=== PATIENT | male | born 1980 | race Two or more races ===

== ENCOUNTER 2019-01-16 17:55 | Emergency (ER) | payer SELFPAY ==
[~2019-01-16] VITALS: Ht 177.8 cm; Wt 73.0 kg
[2019-01-16] MEDS ORDERED: SODIUM CHLORIDE 0.9% 1,000 ML IV ONE (18:15)
[2019-01-16] MEDS ORDERED: LEVETIRACETAM 1000MG/100ML 100 ML IV ONE (18:15)
[2019-01-16 18:56] LABS: BASOPHILS % 1.1 % (0.0-2.0); EOSINOPHILS % 7.9 % (0.0-5.0); HEMATOCRIT. 35.4 % (42.0-52.0); HEMOGLOBIN. 12.1 g/dL (14.0-18.0); LYMPHOCYTES % 17.6 % (20.0-50.0); MEAN CORPUSCULAR HEMOGLOBIN 30.9 pg (28.0-32.0); MEAN CORPUSCULAR VOLUME 90.5 fL (80.0-94.0); MEAN PLATELET VOLUME 6.7 fl (7.4-10.4); MONOCYTES % 6.5 % (2.0-8.0); NEUTROPHILS % 66.9 % (40.0-76.0); PLATELET 268 x1000/uL (130-400); RED BLOOD CELL COUNT 3.91 mill/uL (4.7-6.1); RED CELL DISTRIBUTION WIDTH 13.7 % (11.6-14.6)
[2019-01-16 18:58] LABS: CHLORIDE 106 mEq/L (98-107)
[2019-01-16 19:02] LABS: ETHANOL BLOOD < 10 mg/dL
[2019-01-17 00:30] VITALS: BP 131/80
== END 2019-01-17 00:40 | disposition home or self-care (01) ==
LOC: ER 17:55
DX: R56.9 Unspecified convulsions (principal)
CPT/HCPCS: 36415; 80053; 80320; 83735; 85025; 96365; 99283; J1953; J7030; G0480

== ENCOUNTER 2019-01-19 17:26 | Emergency (ER) | payer SELFPAY ==
[~2019-01-19] VITALS: Ht 185.4 cm; Wt 82.0 kg
[2019-01-19] MEDS ORDERED: SODIUM CHLORIDE 0.9% 1,000 ML IV ONE (17:36)
[2019-01-19] MEDS ORDERED: LEVETIRACETAM 1000MG/100ML 100 ML IV ONE (17:45)
[2019-01-19] MEDS ORDERED: LORAZEPAM 2MG/ML CPJ IV ONE (17:45)
[2019-01-19 18:43] LABS: BASOPHILS % 1.2 % (0.0-2.0); EOSINOPHILS % 4.7 % (0.0-5.0); HEMATOCRIT. 38.3 % (42.0-52.0); HEMOGLOBIN. 13.2 g/dL (14.0-18.0); MEAN CORPUSCULAR VOLUME 90.2 fL (80.0-94.0); MEAN PLATELET VOLUME 6.9 fl (7.4-10.4); MONOCYTES % 6.5 % (2.0-8.0); NEUTROPHILS % 71.6 % (40.0-76.0); PLATELET 310 x1000/uL (130-400); RED BLOOD CELL COUNT 4.25 mill/uL (4.7-6.1); RED CELL DISTRIBUTION WIDTH 13.8 % (11.6-14.6)
[2019-01-19 18:49] LABS: CHLORIDE 102 mEq/L (98-107)
[2019-01-19 18:52] LABS: ETHANOL BLOOD < 10 mg/dL
[2019-01-19 19:53] LABS: CLARITY URINE CLEAR (CLEAR); COLOR URINE YELLOW (YELLOW); KETONES URINE NEGATIVE (NEGATIVE); LEUKOCYTE ESTERASE URINE NEGATIVE (NEGATIVE); NITRITE URINE NEGATIVE (NEGATIVE); OCCULT BLOOD URINE NEGATIVE (NEGATIVE); PROTEIN URINE 1+ (NEGATIVE); SPECIFIC GRAVITY URINE 1.016 (1.005-1.030); UROBILINOGEN URINE 0.2 E.U./dL (0.2-1.0)
[2019-01-19 20:23] LABS: *BARBITURATES SCREEN URINE NEGATIVE (NEGATIVE); *COCAINE SCREEN URINE NEGATIVE (NEGATIVE); METHADONE URINE SCREEN NEGATIVE (NEGATIVE)
[2019-01-19 20:25] LABS: CANNABINOID URINE SCREEN NEGATIVE (NEGATIVE); OPIATES URINE SCREEN NEGATIVE (NEGATIVE); PHENCYCLIDINE URINE SCREEN NEGATIVE (NEGATIVE)
[2019-01-19 20:26] LABS: *AMPHETAMINES SCREEN URINE NEGATIVE (NEGATIVE); *BENZODIAZEPINES SCREEN URINE NEGATIVE (NEGATIVE)
[2019-01-20 00:07] VITALS: BP 131/86
== END 2019-01-20 00:26 | disposition short-term general hospital (02) ==
LOC: ER 17:41
DX: R56.9 Unspecified convulsions (principal); E86.0 Dehydration; F41.9 Anxiety disorder, unspecified; I10 Essential (primary) hypertension
CPT/HCPCS: 36415; 80053; 80305; 80320; 81003; 85025; 96365; 96375; 99285; J1953; J2060; J7030; G0480